=== PATIENT | male | born 1980 | race Caucasian/White ===

== ENCOUNTER 2017-08-22 10:44 | Emergency (ER) | payer OTHER ==
[~2017-08-22] VITALS: Ht 182.9 cm; Wt 80.0 kg
[~2017-08-22 10:44] MED LIST: CIPRO500 MG PO; LORTAB5 PO; NO HOME MEDS
[2017-08-22 11:30] LABS: HEMATOCRIT 47.4 % (39.0-50.0); HEMOGLOBIN 16.3 g/dl (14.0-18.0); IMMATURE GRANULOCYTES 0.3 % (0.0-1.0); MEAN CELL VOLUME 88.3 fL CALC (80.0-100.0); MEAN CORPUSCULAR HGB 30.4 pG CALC (26.0-32.0); MEAN CORPUSCULAR HGB CONC 34.4 g/L CALC (32.0-36.0); NEUT# 10.38 thou/uL (1.82-7.42); RED BLOOD COUNT 5.37 mill/uL (4.70-6.10); RED CELL DISTRI WIDTH 13.1 % (11.5-15.5)
[2017-08-22 11:53] LABS: ALBUMIN 4.8 g/dL (3.2-5.0); ALKALINE PHOSPHATASE 89 u/l (38-126); AMYLASE 65 u/l (30-110); ANION GAP 16 (6-22 (CALC)); BILIRUBIN, TOTAL 0.5 mg/dL (0.0-1.4); BUN 11 mg/dL (9-20); BUN/CREATININE RATIO 10 (12-20 (CALC)); CALCIUM 10.3 mg/dL (8.4-10.2); CARBON DIOXIDE 25 mmol/l (22-30); CHLORIDE 105 mmol/l (95-108); GFR > 60 ML/MIN (>=60 (CALC)); GFR FOR AFR.AMER. > 60 ML/MIN (>=60 (CALC)); GLUCOSE 129 mg/dL (75-110); LIPASE 74 u/l (23-300); POTASSIUM 4.1 mmol/l (3.5-5.1); SGOT/AST 25 u/l (17-59); SGPT/ALT 26 u/l (21-72); SODIUM 142 mmol/l (137-146); TOTAL PROTEIN 7.4 g/dL (6.3-8.2)
[2017-08-22 13:10] LABS: URINE BLOOD DIPSTICK LARGE (NEGATIVE); URINE COLOR BROWN; URINE GLUCOSE - DIPSTICK NEGATIVE (NEGATIVE); URINE KETONE TRACE mg/dL (NEGATIVE); URINE LEUK ESTERASE TRACE (NEGATIVE); URINE NITRITE - DIPSTICK NEGATIVE (Negative); URINE PROTEIN - DIPSTICK 100 mg/dL (NEG-TRACE); URINE SPECIFIC GRAVITY 1.015
[2017-08-22 13:11] LABS: URINE BILIRUBIN - DIPSTICK NEGATIVE (NEGATIVE); URINE CLARITY CLOUDY
[2017-08-22 13:19] LABS: URINE RBC 50-100 RBC/hpf (0-5)
[2017-08-22] MEDS ORDERED: TAMSULOSIN0.4 MG PO (16:18)
[2017-08-22] MEDS ORDERED: CIPROFLOXACIN250 MG PO (16:18)
[2017-08-22] MEDS ORDERED: PERCOCET 5/325M1 TAB PO (16:18)
[2017-08-22 17:58] VITALS: BP 113/69
== END 2017-08-22 18:10 | disposition home or self-care (01) | DRG 694 ==
LOC: ED 10:44
PROVIDERS: Emergency Medicine
DX: N20.1 Calculus of ureter (principal); Z87.442 Personal history of urinary calculi; R10.32 Left lower quadrant pain; R10.9 Unspecified abdominal pain; R11.10 Vomiting, unspecified

== ENCOUNTER 2021-12-09 19:28 | Emergency (ER) | payer SELFPAY ==
[~2021-12-09] VITALS: Ht 182.9 cm; Wt 74.5 kg
[~2021-12-09 19:28] MED LIST changes: +CIPROFLOXACIN250 MG PO; +PERCOCET 5/325M1 TAB PO; +TAMSULOSIN0.4 MG PO
[2021-12-09 19:36] VITALS: BP 139/85
[2021-12-09 20:32] VITALS: BP 119/79
[2021-12-09] MEDS ORDERED: BACLOFEN10 MG PO (21:00)
[2021-12-09] MEDS ORDERED: MEDDOSEPAK PO (21:01)
[2021-12-09 21:19] VITALS: BP 114/86
[2021-12-09 21:30] VITALS: BP 106/74
[2021-12-09] MEDS ORDERED: NAPROXEN500 MG PO (21:50)
[2021-12-09] MEDS ORDERED: CYCLOBENZAPRINE10 MG PO (21:50)
[2021-12-09 22:00] VITALS: BP 117/77
[2021-12-09 22:09] VITALS: BP 117/77
== END 2021-12-09 22:09 | disposition home or self-care (01) | DRG 552 ==
LOC: ED 19:28
DX: S13.9XXA Sprain of joints and ligaments of unspecified parts of neck, initial encounter (principal); M54.12 Radiculopathy, cervical region; F17.200 Nicotine dependence, unspecified, uncomplicated; X50.0XXA Overexertion from strenuous movement or load, initial encounter

== ENCOUNTER 2022-06-02 09:58 | Emergency (ER) | payer OTHER ==
[~2022-06-02] VITALS: Ht 182.9 cm; Wt 72.0 kg
[2022-06-02] VITALS (11 sets, daily range): BP systolic 103–121; BP diastolic 69–83
[~2022-06-02 09:58] MED LIST changes: +BACLOFEN10 MG PO; +CYCLOBENZAPRINE10 MG PO; +MEDDOSEPAK PO; +NAPROXEN500 MG PO
[2022-06-02 10:35] LABS: GFR FOR AFR.AMER. > 60 ML/MIN (>=60 (CALC)); GFR OTHER RACES > 60 ML/MIN (>=60 (CALC))
[2022-06-02 10:42] LABS: HEMATOCRIT 44.5 % (39.0-50.0); HEMOGLOBIN 15.5 g/dl (14.0-18.0); IMMATURE GRANULOCYTES 0.1 % (0.0-5.0); MEAN CELL VOLUME 88.1 fL CALC (80.0-100.0); MEAN CORPUSCULAR HGB 30.7 pG CALC (26.0-32.0); MEAN CORPUSCULAR HGB CONC 34.8 g/dL CAL (32.0-36.0); NEUT# 10.42 thou/uL (1.82-7.42); RED BLOOD COUNT 5.05 mill/uL (4.70-6.10); RED CELL DISTRI WIDTH 12.5 % (11.5-15.5)
[2022-06-02 11:03] LABS: ALBUMIN 4.6 g/dL (3.2-5.0); ALKALINE PHOSPHATASE 72 u/l (38-126); ANION GAP 14 (6-22 (CALC)); BILIRUBIN, TOTAL 0.5 mg/dL (0.0-1.4); BUN 8 mg/dL (9-20); BUN/CREATININE RATIO 10 (12-20 (CALC)); CARBON DIOXIDE 25 mmol/l (22-30); CHLORIDE 104 mmol/l (95-108); CREATININE 0.7 mg/dL (0.7-1.3); GFR FOR AFR.AMER. > 60 ML/MIN (>=60 (CALC)); GFR OTHER RACES > 60 ML/MIN (>=60 (CALC)); LIPASE 59 u/l (23-300); POTASSIUM 3.9 mmol/l (3.5-5.1); SGOT/AST 25 u/l (17-59); SODIUM 140 mmol/l (137-146); TOTAL PROTEIN 7.3 g/dL (6.3-8.2)
[2022-06-02 11:46] LABS: URINE BILIRUBIN - DIPSTICK NEGATIVE (NEGATIVE); URINE BLOOD DIPSTICK NEGATIVE (NEGATIVE); URINE COLOR YELLOW; URINE GLUCOSE - DIPSTICK NEGATIVE (NEGATIVE); URINE KETONE TRACE mg/dL (NEGATIVE); URINE LEUK ESTERASE NEGATIVE (NEGATIVE); URINE PH 6.5 (4.5-8.0); URINE PROTEIN - DIPSTICK NEGATIVE (NEG-TRACE); URINE SPECIFIC GRAVITY <=1.005; URINE UROBILINOGEN - DIPSTICK 0.2 E.U./dL (0.2)
[2022-06-02 11:55] LABS: URINE NITRITE - DIPSTICK NEGATIVE (Negative)
[2022-06-02] MEDS ORDERED: ZOFRAN4 MG/TAB PO (12:38)
[2022-06-02] MEDS ORDERED: CEPHALEXIN500 M1 PO (12:38)
== END 2022-06-02 12:59 | disposition home or self-care (01) | DRG 392 ==
LOC: ED 09:58
PROVIDERS: Family Medicine
DX: R10.84 Generalized abdominal pain (principal); F17.210 Nicotine dependence, cigarettes, uncomplicated
CPT/HCPCS: Q9967